=== PATIENT | male | born 2000 | race Caucasian/White ===

== ENCOUNTER 2021-02-16 00:14 | Emergency (ER) | payer SELFPAY ==
[~2021-02-16] VITALS: Ht 172.7 cm; Wt 72.6 kg
--- NOTE | 2021-02-16 00:20 | NUR ---
PRESENTED TO THE ER FOR C/O L SIDED NECK ABSCESS FOR A WK WHICH PER PT STARTED W/ SHAVING THE AREA. A, OX4. AMBULATORY TO BED 3. PLACED ON A MONITOR. VSS. WILL CONT TO MONITOR,
[2021-02-16] MEDS ORDERED: LIDOCAINE HCL/MPF 1% 30 ML VIAL IJ ONE (00:30)
--- NOTE | 2021-02-16 00:39 | NUR ---
AT [facility] FOR I&D
--- NOTE | 2021-02-16 00:45 | NUR ---
WOUND CLEANED AND DRESSED
[2021-02-16] MEDS ORDERED: SULFAMETH/TRIMETH 800/160 MG 1 UDTAB TABLET ONE (00:54)
[2021-02-16] MEDS ORDERED: CEPHALEXIN MONOHYDRATE 500 MG CAPSULE PO ONE ×2 (00:54→01:00)
[2021-02-16] MEDS ORDERED: SULFAMETH/TRIMETH 800/160 MG 1 UDTAB TABLET PO ONE (01:00)
[2021-02-16] MEDS ORDERED: SULF1TAB48 PO (01:06)
[2021-02-16] MEDS ORDERED: CEPH500T PO (01:06)
--- NOTE | 2021-02-16 01:10 | NUR ---
Patient discharged to home in stable condition. Written and verbal after care instructions given. Patient verbalizes understanding of instruction. pT ambulatory with a steady gait
[2021-02-16 01:12] VITALS: BP 130/88
== END 2021-02-16 01:10 | disposition home or self-care (01) ==
LOC: ER 00:19
DX: L02.11 Cutaneous abscess of neck (principal)
CPT/HCPCS: 10060; 99283; A6403; A6407; J3490

== ENCOUNTER 2021-02-17 17:58 | Emergency (ER) | payer MEDICAID ==
[~2021-02-17] VITALS: Ht 172.7 cm; Wt 72.6 kg
[~2021-02-17 17:58] MED LIST: CEPH500T PO; SULF1TAB48 PO
[2021-02-17 18:28] VITALS: BP 140/61
--- NOTE | 2021-02-17 18:40 | NUR ---
I AND D DONE BY SALAS MORALES
--- NOTE | 2021-02-17 18:47 | NUR ---
Patient discharged to home in stable condition. Written and verbal after care instructions given. Patient verbalizes understanding of instruction.
== END 2021-02-17 18:48 | disposition home or self-care (01) ==
LOC: ER 18:15
DX: Z48.01 Encounter for change or removal of surgical wound dressing (principal); L02.11 Cutaneous abscess of neck

== ENCOUNTER 2021-03-02 13:49 | Emergency (ER) | payer MEDICAID ==
[~2021-03-02] VITALS: Ht 172.7 cm; Wt 71.8 kg
--- NOTE | 2021-03-02 14:26 | NUR ---
BIBS FOR C/O ON AND OFF PALPITATION AND CHEST PAIN X3 DAYS. DENIES HAVING CHEST BEKAH OR PALPITATION AT THIS TIME. IN ROOM AIR AND DENIES SOB. RESPIRATION REGULAR AND UNLABORED. THE PATIENT IS ATTACHED TO THE MONITOR. WARM BLANKET PROVIDED FOR COMFORT. WILL CONTINUE TO MONITOR THE PATIENT.
--- NOTE | 2021-03-02 15:25 | NUR ---
DESPATCHING AND RECEIVING CLERK AT BEDSIDE
--- NOTE | 2021-03-02 15:48 | NUR ---
JOANIE HAWK AT PT'S BEDSIDE
[2021-03-02 15:51] LABS: BASOPHILS % (AUTO) 0.6 % (0.0-2.0); HEMATOCRIT 46 % (39-51); HEMOGLOBIN 15.9 g/dL (13.5-17.5); LYMPHOCYTES # (AUTO) 0.6 K/uL (0.8-4.8); LYMPHOCYTES % (AUTO) 13.5 % (20.0-44.0); MEAN CORPUSCULAR HGB CONC 34 g/dl (31.0-36.0); MEAN CORPUSCULAR VOLUME 88 fL (80-96); MONOCYTES # (AUTO) 0.2 K/uL (0.1-1.30); NEUTROPHILS # (AUTO) 3.8 K/uL (1.8-8.9); NEUTROPHILS % (AUTO) 80.9 % (43.0-81.0); PLATELET COUNT (AUTO) 261 K/uL (150-450); RED BLOOD CELL COUNT(AUTO) 5.28 MIL/uL (4.5-6.0); WHITE BLOOD COUNT (AUTO) 4.6 K/uL (4.3-11.0)
[2021-03-02 16:09] LABS: CALCIUM, SERUM 9.2 mg/dL (8.5-10.1); CARBON DIOXIDE 27 mmol/L (21-32); CHLORIDE 100 mmol/L (98-107); CREATININE 1.1 mg/dL (0.6-1.3); GLUCOSE 82 mg/dL (74-106); POTASSIUM 3.6 mmol/L (3.5-5.1); SODIUM SERUM 138 mmol/L (136-145); UREA NITROGEN, BLOOD 10 mg/dL (7-18)
[2021-03-02] MEDS ORDERED: IBUP-1957 PO (17:25)
--- NOTE | 2021-03-02 17:39 | NUR ---
Patient discharged to home in stable condition. Written and verbal after care instructions given. Patient verbalizes understanding of instruction.
[2021-03-02 17:41] VITALS: BP 132/71
== END 2021-03-02 17:42 | disposition home or self-care (01) ==
LOC: ER 13:52
DX: I31.9 Disease of pericardium, unspecified (principal)
CPT/HCPCS: 36415; 80048-TC; 84484-TC; 85025-TC